=== PATIENT | female | born 1975 | race Asian ===

== ENCOUNTER 2021-02-12 16:21 | Emergency (ER) | payer SELFPAY ==
[~2021-02-12] VITALS: Ht 152.4 cm; Wt 54.5 kg
[2021-02-12] MEDS ORDERED: ondansetron/PF 4mg/2ml inj IV ONE (19:45)
[2021-02-12] MEDS ORDERED: morphine 2 MG/ML inj. syringe IV PRN (19:45)
[2021-02-12] MEDS ORDERED: ACET-3068 PO (22:14)
[2021-02-12 22:21] VITALS: BP 125/85
== END 2021-02-12 22:41 | disposition home or self-care (01) ==
LOC: ER 16:23
DX: S52.121A Displaced fracture of head of right radius, initial encounter for closed fracture (principal); W18.39XA Other fall on same level, initial encounter; Y93.89 Activity, other specified; Y92.89 Other specified places as the place of occurrence of the external cause; Y99.8 Other external cause status
CPT/HCPCS: 29105; 73080; 73090; 96374; 96375; 99284; J2270; J2405